=== PATIENT | male | born 1945 | race Caucasian/White ===

== ENCOUNTER 2017-11-25 10:46 | Day surgery (SDC) | payer OTHER ==
[2017-11-24 10:28] VITALS: BMI 24.8
[2017-11-25] MEDS ORDERED: BUPIVACAINE HCL/PF 0.75% 10 ML VIAL ONE (12:17)
[2017-11-25] MEDS ORDERED: ONDANSETRON 4 MG/2 ML VIAL IVPUSH PRN (12:34)
[2017-11-25] MEDS ORDERED: oxyCODONE HCL 5 MG TABLET PO PRN (12:34)
[2017-11-25] MEDS ORDERED: LACTATED RINGERS SOLUTION 1,000 ML IV SCH (12:45)
--- NOTE | 2017-11-25 12:48 | HP ---
History & Physical Update - History History: No Change - Physical Physical: No Change - Assessment Assessment: No Change - Plan Plan: No Change
[2017-11-25] MEDS ORDERED: IBUPROFEN 800 MG/8 ML IJ IVPB PRN (12:50)
[2017-11-25] MEDS ORDERED: ACETAMINOPHEN 1000 MG/100 ML VIAL (NON FORMULARY) IVPB ONE (12:51)
[2017-11-25] MEDS ORDERED: MIDAZOLAM HCL 2 MG/2 ML SINGLE DOSE VIAL ONE (12:52)
[2017-11-25] MEDS ORDERED: DEXTROSE 5%-0.45% SALINE 1,000 ML IV SCH (13:00)
[2017-11-25] MEDS ORDERED: ceFAZolin SODIUM 1 GM VIAL IVPB ONE (13:05)
[2017-11-25] MEDS ORDERED: ceFAZolin SODIUM 1 GM VIAL ONE (13:15)
[2017-11-25] MEDS ORDERED: ACETAMINOPHEN INJECTION 100 ML IVPB ONE (14:34)
[2017-11-25 16:58] VITALS: TEMP 98.3
[2017-11-25 18:37] VITALS: BP 131/75; PULSE 79
--- NOTE | 2017-11-26 12:36 | OP ---
DATE OF OPERATION: 11/25/2017 PREOPERATIVE DIAGNOSIS: Right testicular mass. POSTOPERATIVE DIAGNOSIS: Right testicular mass. PROCEDURE: Right radical orchiectomy. ANESTHESIA: Spinal. FINDINGS: A hard testicle. SPECIMENS: Testicle with the spermatic cord. ESTIMATED BLOOD LOSS: Minimal. PREOPERATIVE INDICATIONS: The patient is a 72-year-old male with a history of lymphoma. He presents with a hardened right testicle. An ultrasound report said it is suspicious for malignancy. 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 He comes to the OR for a radical orchiectomy. DESCRIPTION OF PROCEDURE: The patient was brought to the OR, placed on the table in the supine position, given general anesthesia. and the groin were shaved and prepped and draped sterilely. Timeout was performed. On examination, the right testicle was palpated, again was hardened. Incision was made over the inguinal region where the deep inguinal ring was. Fat was incised down to the aponeurosis. This was opened as well. The spermatic cord was identified, and a 1/2-inch Christi drain was looped around twice and then clamped around the spermatic cord. The testicle was then pushed up from the scrotum into the inguinal incision. The testicle was then from scrotal wall by cauterizing the gubernaculum, and hemostasis was maintained throughout. The cord was then addressed and taken as high as it could at the area of the deep inguinal ring. It was clamped with 2 Kellys and suture ligature was performed using silk suture. The spermatic cord was then divided, and the spermatic cord and testicle were sent off for pathological diagnosis. There was no evidence of any bleeding at this time. The aponeurosis was closed using 3-0 Vicryl suture as well as subcutaneous tissues. The skin was closed with steven. Wounds were dressed. This patient was woken up. Moni [id number]
--- NOTE | 2017-12-01 10:11 | PATH ---
Surgical Pathology Report Patient Name: KOBI SHELBY [facility] Rec. #: [id number] /Age/Gender: 1945 (Age: 72) / M Account: [id number] Location: [facility] Taken: 11/25/2017 Received: 11/25/2017 Reported: 12/01/2017 Physicians: Amos Guerrier M.D. Jon Urban M.D. Specimen(s) Received RIGHT TESTICULAR MASS Clinical History Right testicular mass Final Diagnosis TESTES, RIGHT, RADICAL ORCHECTOMY: SEMINOMA. TUMOR SIZE: 3.1 x 2.1 x 1.8 CM. 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 SURGICAL RESECTION MARGIN (SPERMATIC CORD RESECTION MARGIN): NEGATIVE FOR TUMOR. LYMPHOVASCULAR INVASION: NOT IDENTIFIED. PERINEURAL INVASION: NOT IDENTIFIED. INTRATUBULAR GERM CELL NEOPLASIA: FOCALLY PRESENT. PATHOLOGIC STAGING: PRIMARY TUMOR: PT1b LYMPH NODES: pNx SERUM MARKERS: S0 Comment: No other types of germ cell tumor are identified. Immunohistochemical stains performed at [place], [place] ([id number]) on block B2 and interpreted with [facility] show the following: The tumor cells are positive for PLAP, D2-40, OCT3/4, and CD117 (c-kit) immunostains, while negative for AE1/AE3. Rare cells are staining for CD30 and Glypican-3 immunostains. CD45+ lymphocytes are admixed with tumor cells wherein a small subset of small CD20+ B cells are noted. The serum markers (LDH, hCG and AFP) are within normal limits per report. Findings discussed by Dr. Bliss with Dr. Guerrier. Comments TESTIS: Radical Orchiectomy Specimen Laterality _X_ Right Tumor Focality _X_ Unifocal Tumor Size Greatest dimension of main tumor mass (centimeters): 3.1 cm + Additional dimensions: 2.1 x 1.8 cm Intratubular Germ Cell Neoplasia _X_ Intratubular seminoma (Focal) Seminoma _X_ Seminoma Tumor Extension _X_ Tumor limited to testis _X_ Tumor invades rete testis Margins Spermatic Cord Margin _X__ Uninvolved by tumor Lymphovascular Invasion _X_ Not identified Regional Lymph Nodes _X_ No lymph nodes submitted or found Pathologic Stage Classification (pTNM, AJCC 8th Edition) Primary Tumor (pT) _X_ pT1b: Tumor 3 cm or larger in size Regional Lymph Nodes (pN) _X_ pNX: Regional lymph node cannot be assessed + Pre-Orchiectomy Serum Tumor Markers + _X_ Serum marker studies within normal limits + Post-Orchiectomy Serum Tumor Markers + _X_ Unknown + Serum Tumor Markers (S) + _X_ S0: Serum marker study levels within normal limits Electronically Signed Teressa Sainz M.D. Addendum Reported: 12/01/2017 Addendum Diagnosis LYMPHOPROLIFERATIVE FLOW PANEL performed and interpreted at [facility], [place], [place] ([id number]) INTERPRETATION: There is no definitive evidence of B or T-cell proliferative disorders or clonal plasma cells. Comment: Large cohesive clusters of large atypical nucleolated cells are present in the touch imprints. Correlation with complete morphologic and immunohistochemical assessment of the sample is essential. This sample is 80% viable which does not meet the standard for routine analysis. Because it is an irreplaceable sample, the results are being reported, but they must be interpreted in the context of morphologic and all other test results because of diminished certainty of the validity of findings. See [facility] report for additional details. Teressa Sainz M.D. Gross Description Received fresh labeled "right testicle," is a 44 g orchiectomy specimen including a 3.8 x 3.0 x 2.8 cm testicle, a 3.5 x 1.2 x 1.0 cm epididymis and an 8.5 cm length portion of attached spermatic cord. Sectioning reveals a 3.1 x 1.8 x 2.1 cm santana, firm, smooth mass with foci of fibrous tissue. The mass abuts the tunica albuginea in the inferior pole of the testis but does not appear to invade through the tunica. The mass does not appear to involve the epididymis or the spermatic cord. The remaining testicular parenchyma displays normal santana tubules. Oyster Unloader sections are submitted in 9 cassettes as follows: 1-spermatic cord margin of resection; 2-3-one full face bisected section of mass; 4-mass with surrounding normal parenchyma; 5-mass with tunica albuginea; 6-mass with epididymis; 7-additional epididymis; 8-mass with rete testis; 9-additional spermatic cord. DL11/25/2017 saudi11/25/2017
== END 2017-11-25 19:00 | disposition home or self-care (01) ==
LOC: JASU-SURG 10:46
PROVIDERS: ATTEND Urology
PROC: 0VT90ZZ Resection of Right Testis, Open Approach (ICD-10-PCS; principal; 2017-11-25 12:00)
DX: D40.11 Neoplasm of uncertain behavior of right testis (principal); Z85.72 Personal history of non-Hodgkin lymphomas
CPT/HCPCS: 88309-TC; 94760; J0131

== ENCOUNTER 2021-02-19 04:53 | Day surgery (SDC) | payer OTHER ==
[2021-02-15 16:35] VITALS: BMI 25.9
[2021-02-19 08:17] VITALS: TEMP 98.3
[2021-02-19 10:47] VITALS: BP 119/65; PULSE 50
== END 2021-02-19 11:09 | disposition home or self-care (01) ==
LOC: JASU-ENDO 04:53
PROVIDERS: ATTEND Internal Medicine Gastroenterology
PROC: 0DBP8ZX Excision of Rectum, Via Natural or Artificial Opening Endoscopic, Diagnostic (ICD-10-PCS; principal; 2021-02-19 09:00)
DX: Z12.11 Encounter for screening for malignant neoplasm of colon (principal); K62.1 Rectal polyp; K64.8 Other hemorrhoids; K63.89 Other specified diseases of intestine; Z86.010 Personal history of colon polyps; Z80.0 Family history of malignant neoplasm of digestive organs
CPT/HCPCS: 88305-TC

== ENCOUNTER 2024-12-31 17:18 | Inpatient (IN) | payer OTHER, MEDICARE ==
[2024-12-31 17:30] VITALS: BMI 26.1
[2024-12-31] MEDS ORDERED: ACETAMINOPHEN INJECTION 100 ML ONE (18:20)
[2024-12-31] MEDS: ACETAMINOPHEN 1000 MG/100 ML BAG IVPB ONE (18:52)
[2024-12-31 18:56] LABS: ABSOLUTE IMMATURE GRANULOCYTES 0.15 x10^3/uL (0.0-0.031); BASOPHILS # 0.04 x10^3/uL (0.01-0.08); EOSINOPHIL % 0.2 % (0.8-7.0); EOSINOPHILS # 0.03 x10^3/uL (0.04-0.54); HEMATOCRIT 41.9 % (40.1-51.0); HEMOGLOBIN 14.1 g/dL (13.7-17.5); MCHC 33.7 g/dl (32.3-36.5); MEAN CELL VOLUME 89.3 fl (79.0-92.2); MEAN PLT VOLUME 9.9 fl (9.4-12.4); MONOCYTE # 1.14 x10^3/uL (0.30-0.82); MONOCYTE % 6.3 % (5.3-12.2); PLATELET COUNT 158 x10^3/uL (163-337); RDW 12.6 % (12.2-16.6)
[2024-12-31 18:57] LABS: VENOUS BASE EXCESS 2.4 mmol/L (-2-2); VENOUS O2 SATURATION 67.5 % (70-80); VENOUS PCO2 44.4 mmHg (38-52); VENOUS PH 7.411 (7.310-7.410)
[2024-12-31 19:27] LABS: CALCIUM 9.9 mg/dL (8.5-10.1)
[2024-12-31 19:28] LABS: ALBUMIN 3.7 g/dl (3.4-5.0); BLOOD UREA NITROGEN 22.6 mg/dL (7-18)
[2024-12-31 19:31] LABS: CREATININE 1.4 mg/dL (0.55-1.3)
[2024-12-31 19:33] LABS: BILIRUBIN,TOTAL 1.2 mg/dL (0.2-1); TOT PROT 6.1 g/dl (6.4-8.2)
[2024-12-31 20:10] LABS: EPI CELLS 6 /uL (0-25.1); HYALINE CASTS 1 /uL (0-3.1); PH,URINE >= 9.0 (5.0-8.0); URINE APPEARANCE CLOUDY; URINE BACTERIA >9,000 /uL (0-1359); URINE BILIRUBIN NEGATIVE (NEGATIVE); URINE COLOR YELLOW; URINE GLUCOSE (UA) NEGATIVE (NEGATIVE); URINE KETONE NEGATIVE (NEGATIVE); URINE LEUK ESTERASE 3+ (NEGATIVE); URINE NITRITE NEGATIVE (NEGATIVE); URINE PROTEIN TRACE (NEGATIVE); URINE RBC 5 /uL (0-23.9); URINE UROBILINOGEN 0.2 mg/dL (0.2-1.0); URINE WBC 13 /uL (0-25.8)
[2024-12-31] MEDS: CEFTRIAXONE 1,000 MG in DEXTROSE 5%-WATER - 50 ML IVPB ONE (20:20)
[2024-12-31] MEDS: SODIUM CHLORIDE 1,000 ML IV STA (20:20)
[2024-12-31] MEDS ORDERED: DOCUSATE SODIUM 100 MG CAPSULE (FP) PO PRN (22:47)
[2025-01-01 07:14] LABS: HEMATOCRIT 39.4 % (40.1-51.0); MEAN CELL VOLUME 89.5 fl (79.0-92.2); MEAN PLT VOLUME 10.4 fl (9.4-12.4); PLATELET COUNT 151 x10^3/uL (163-337); RDW 12.8 % (12.2-16.6)
[2025-01-01 08:09] LABS: POTASSIUM 3.9 mmol/L (3.5-5.1)
[2025-01-01 08:11] LABS: BLOOD UREA NITROGEN 23.4 mg/dL (7-18); CALCIUM 9.2 mg/dL (8.5-10.1); MAGNESIUM 1.6 mg/dL (1.8-2.4)
[2025-01-01 08:14] LABS: CREATININE 1.4 mg/dL (0.55-1.3); PHOSPHOROUS 2.7 mg/dL (2.5-4.9)
[2025-01-01] MEDS: MAGNESIUM OXIDE 400 MG TABLET (FP) PO SCH (09:22)
[2025-01-01] MEDS: HEPARIN NA (PORCINE) 5,000 UNITS/ML 1ML VIAL SQ SCH (09:23)
[2025-01-01] MEDS ORDERED: CEFTRIAXONE 1 G/50 ML PREMIX 50 ML IVPB SCH (13:55)
[2025-01-01] MEDS: CEFTRIAXONE 1 G/50 ML PREMIX 50 ML IVPB SCH (14:10)
[2025-01-01] MEDS: CEFTRIAXONE 1 GM in DEXTROSE 5%-WATER - 50 ML IVPB SCH (21:04)
[2025-01-01] MEDS: ATORVASTATIN CA 10 MG TABLET (FP) PO SCH (21:09)
[2025-01-02 07:26] LABS: HEMATOCRIT 39.7 % (40.1-51.0); HEMOGLOBIN 13.3 g/dL (13.7-17.5); MCHC 33.5 g/dl (32.3-36.5); MEAN CELL VOLUME 90.2 fl (79.0-92.2); MEAN PLT VOLUME 10.5 fl (9.4-12.4); PLATELET COUNT 159 x10^3/uL (163-337); RDW 12.8 % (12.2-16.6)
[2025-01-02 07:44] LABS: POTASSIUM 3.8 mmol/L (3.5-5.1)
[2025-01-02 07:48] LABS: ALBUMIN 3.3 g/dl (3.4-5.0); CALCIUM 9.3 mg/dL (8.5-10.1)
[2025-01-02 07:50] LABS: MAGNESIUM 1.9 mg/dL (1.8-2.4)
[2025-01-02 07:52] LABS: CREATININE 1.4 mg/dL (0.55-1.3)
[2025-01-02 07:53] LABS: BILIRUBIN,TOTAL 1.1 mg/dL (0.2-1); TOT PROT 5.8 g/dl (6.4-8.2)
[2025-01-02] MEDS: TAMSULOSIN HCL 0.4 MG CAP PO ONE (10:50)
[2025-01-02] MEDS: ACETAMINOPHEN 325 MG TABLET (FP) PO PRN (21:58)
[2025-01-03 07:29] LABS: HEMOGLOBIN 13.9 g/dL (13.7-17.5); MCHC 33.1 g/dl (32.3-36.5); MEAN CELL VOLUME 89.6 fl (79.0-92.2); MEAN PLT VOLUME 9.9 fl (9.4-12.4); PLATELET COUNT 196 x10^3/uL (163-337); RDW 12.9 % (12.2-16.6)
[2025-01-03 07:47] LABS: POTASSIUM 3.9 mmol/L (3.5-5.1)
[2025-01-03 07:49] LABS: ALBUMIN 3.6 g/dl (3.4-5.0); BLOOD UREA NITROGEN 24.1 mg/dL (7-18); CALCIUM 9.8 mg/dL (8.5-10.1); MAGNESIUM 2.1 mg/dL (1.8-2.4)
[2025-01-03 07:51] LABS: CREATININE 1.4 mg/dL (0.55-1.3)
[2025-01-03 07:53] LABS: BILIRUBIN,TOTAL 0.7 mg/dL (0.2-1); TOT PROT 6.5 g/dl (6.4-8.2)
[2025-01-03] MEDS: TAMSULOSIN HCL 0.4 MG CAP PO SCH (09:14)
[2025-01-03] MEDS ORDERED: BENZOCAINE/MENTH/CETYLPYRD CL 1 EACH LOZENGE MM PRN (10:41)
[2025-01-03 13:48] VITALS: BP 108/53; PULSE 65; RESP 18; TEMP 98.1
== END 2025-01-03 16:07 | disposition home or self-care (01) | DRG 872 ==
LOC: JER 17:18 → JERBED 21:34 → J7W 01-01 00:11 → OBSVTOIN 01-01 15:45
PROVIDERS: ADMIT Internal Medicine; ATTEND Physician Assistant
DX: A41.89 Other specified sepsis (principal); N39.0 Urinary tract infection, site not specified; E87.1 Hypo-osmolality and hyponatremia; B96.4 Proteus (mirabilis) (morganii) as the cause of diseases classified elsewhere; E78.5 Hyperlipidemia, unspecified; N18.31 Chronic kidney disease, stage 3a; N40.0 Benign prostatic hyperplasia without lower urinary tract symptoms; K21.9 Gastro-esophageal reflux disease without esophagitis; R00.0 Tachycardia, unspecified; D72.829 Elevated white blood cell count, unspecified; E83.42 Hypomagnesemia; D69.6 Thrombocytopenia, unspecified; Z85.72 Personal history of non-Hodgkin lymphomas
CPT/HCPCS: 0241U-QW; 36415; 71045-TC-FY; 74177-TC; 80048; 80053; 81003; 82803; 83605; 83735; 84100; 85025; 85027; 87040; 87086; 87186; 93005; 93010; 99285-25; G0378; J0131; J1644; Q9967